=== PATIENT | female | born 1940 | race Caucasian/White ===

== ENCOUNTER 2016-10-11 09:04 | Day surgery (SDC) | payer OTHER ==
[~2016-10-11] VITALS: Ht 152.4 cm; Wt 56.9 kg
[2016-10-11 10:16] VITALS: BP 161/76; PULSE 72; TEMP 97.9
[2016-10-11] MEDS ORDERED: IMDUR 30MG30 MG/TAB PO (10:27)
[2016-10-11] MEDS ORDERED: GLUCOPHAGE500 MG/TAB PO (10:27)
[2016-10-11] MEDS ORDERED: COZAAR100 MG PO (10:28)
[2016-10-11] MEDS ORDERED: STRESS FORMULA1 T16 PO (10:29)
[2016-10-11] MEDS ORDERED: IBU600 MG PO (10:29)
[2016-10-11] MEDS ORDERED: TURMERIC500 MG PO (10:30)
[2016-10-11] MEDS ORDERED: NATURAL MAGNES200 MG PO (10:30)
[2016-10-11] MEDS ORDERED: NATURAL POTASS595 MG PO (10:31)
[2016-10-11] MEDS ORDERED: FOLIC ACID800 MCG PO (10:32)
[2016-10-11] MEDS ORDERED: GLUCOSAMIN 500 PO (10:32)
[2016-10-11] MEDS ORDERED: VITAMIN D3400 I1 PO (10:35)
[2016-10-11] MEDS ORDERED: [UNRECOGNIZED DRUG - OTHER] PO (10:36)
[2016-10-11] MEDS ORDERED: ASPIRIN 81M81 MG/TA2 PO (10:36)
[2016-10-11] MEDS ORDERED: RT ADVAIR 228 DISKUS IH (10:37)
[2016-10-11 11:20] VITALS: BP 153/78; PULSE 70
[2016-10-11 11:35] VITALS: BP 152/77; PULSE 62
[2016-10-11 11:50] VITALS: BP 149/82; PULSE 62
[2016-10-11 12:05] VITALS: BP 153/70; PULSE 67
[2016-10-11 18:48] VITALS: BP 139/66; PULSE 64
== END 2016-10-11 12:35 | disposition home or self-care (01) ==
LOC: SDCO 09:04
DX: K22.2 Esophageal obstruction (principal); K44.9 Diaphragmatic hernia without obstruction or gangrene; D12.8 Benign neoplasm of rectum; K57.30 Diverticulosis of large intestine without perforation or abscess without bleeding; R10.31 Right lower quadrant pain; R10.13 Epigastric pain; I10 Essential (primary) hypertension; M81.0 Age-related osteoporosis without current pathological fracture; E78.5 Hyperlipidemia, unspecified; F32.9 Major depressive disorder, single episode, unspecified; Z85.3 Personal history of malignant neoplasm of breast; Z79.899 Other long term (current) drug therapy; Z79.82 Long term (current) use of aspirin; Z79.1 Long term (current) use of non-steroidal anti-inflammatories (NSAID)
CPT/HCPCS: OP; J2704; J7030

== ENCOUNTER 2016-10-27 09:04 | Day surgery (SDC) | payer OTHER ==
[~2016-10-27] VITALS: Ht 152.4 cm; Wt 57.0 kg
[~2016-10-27 09:04] MED LIST: ASPIRIN 81M81 MG/TA2 PO; COZAAR100 MG PO; FOLIC ACID800 MCG PO; GLUCOPHAGE500 MG/TAB PO; GLUCOSAMIN 500 PO; IBU600 MG PO; IMDUR 30MG30 MG/TAB PO; NATURAL MAGNES200 MG PO; NATURAL POTASS595 MG PO; RT ADVAIR 228 DISKUS IH; STRESS FORMULA1 T16 PO; TURMERIC500 MG PO; VITAMIN D3400 I1 PO; [UNRECOGNIZED DRUG - OTHER] PO
[2016-10-27] MEDS ORDERED: B COMPLEX #11 TA1 PO (10:04)
[2016-10-27] MEDS ORDERED: OMEGA-3 1000 MG1 CAP PO (10:05)
[2016-10-27] MEDS ORDERED: LINSEED OIL 1 ML1 ML PO (10:05)
[2016-10-27] MEDS ORDERED: OMEGA-31 SGL PO (10:06)
[2016-10-27] MEDS ORDERED: LEADER NATURAL1 SGL PO (10:06)
[2016-10-27 10:29] VITALS: BP 137/67; PULSE 83; TEMP 98.1
[2016-10-27 10:44] VITALS: BP 149/91; PULSE 76
[2016-10-27] MEDS ORDERED: ZANTAC 150MG T150 MG PO (10:57)
[2016-10-27 10:59] VITALS: BP 151/73; PULSE 73
[2016-10-27 11:05] VITALS: BP 140/80; PULSE 80; TEMP 98.1
[2016-10-27 11:14] VITALS: BP 150/70; PULSE 72
== END 2016-10-27 11:55 | disposition home or self-care (01) ==
LOC: SDCO 09:04
DX: K22.2 Esophageal obstruction (principal); R10.31 Right lower quadrant pain; R10.13 Epigastric pain; I10 Essential (primary) hypertension; F32.9 Major depressive disorder, single episode, unspecified; E78.5 Hyperlipidemia, unspecified; R73.03 Prediabetes; M81.0 Age-related osteoporosis without current pathological fracture; I25.2 Old myocardial infarction; Z87.891 Personal history of nicotine dependence; Z79.84 Long term (current) use of oral hypoglycemic drugs; Z79.82 Long term (current) use of aspirin; Z85.3 Personal history of malignant neoplasm of breast; Z79.899 Other long term (current) drug therapy
CPT/HCPCS: OP; C1726; J0330; J2704; J7030